=== PATIENT | male | born 1995 | race Caucasian/White ===

== ENCOUNTER 2024-09-15 13:01 | Emergency (ER) | payer MEDICAID ==
[~2024-09-15] VITALS: Ht 182.9 cm; Wt 125.0 kg
[2024-09-15 13:14] VITALS: BP 131/73; PULSE 84; RESP 18; TEMP 97.3; O2SAT 99
[2024-09-15] MEDS ORDERED: PALI234D IM (15:56)
[2024-09-15] MEDS ORDERED: HALO10TA21 PO (15:56)
[2024-09-15] MEDS ORDERED: VALP250S27 PO (15:56)
== END 2024-09-15 16:30 | disposition left against medical advice (07) ==
LOC: EMS 13:01
DX: R22.1 Localized swelling, mass and lump, neck (principal); Z53.21 Procedure and treatment not carried out due to patient leaving prior to being seen by health care provider

== ENCOUNTER 2024-09-21 11:59 | Emergency (ER) | payer MEDICAID ==
[~2024-09-21] VITALS: Ht 180.3 cm; Wt 100.0 kg
[~2024-09-21 11:59] MED LIST: HALO10TA21 PO; PALI234D IM; VALP250S27 PO
[2024-09-21 12:10] VITALS: TEMP 97.8
[2024-09-21 15:00] VITALS: BP 115/74; PULSE 85; RESP 17; O2SAT 99
[2024-09-21] MEDS ORDERED: CEPH-558 PO (15:00)
[2024-09-21] MEDS ORDERED: SULF-261 PO (15:00)
[2024-09-21] MEDS: CEPHALEXIN MONOHYDRATE 500 MG CAPSULE PO ONE (15:10)
[2024-09-21] MEDS: SULFAMETHOX/TRIMETH DS 800-160 MG/TABLET PO ONE (15:10)
== END 2024-09-21 15:42 | disposition home or self-care (01) ==
LOC: EMS 11:59
DX: L03.221 Cellulitis of neck (principal); F20.9 Schizophrenia, unspecified; Z79.899 Other long term (current) drug therapy
CPT/HCPCS: 99284; Z7502; Z7610

== ENCOUNTER 2024-10-18 05:57 | Emergency (ER) | payer MEDICAID ==
[~2024-10-18] VITALS: Ht 182.9 cm; Wt 122.7 kg
[~2024-10-18 05:57] MED LIST changes: +CEPH-558 PO; +SULF-261 PO
[2024-10-18] MEDS ORDERED: BUPR1FIL3 SL (06:09)
[2024-10-18] MEDS ORDERED: LEVO25TA9 PO (06:09)
[2024-10-18] MEDS ORDERED: BUPR1FIL7 SL (06:09)
[2024-10-18] MEDS ORDERED: BUPR1TAB45 SL (09:11)
[2024-10-18] MEDS ORDERED: BUPR1TAB46 SL (09:11)
[2024-10-18 09:26] VITALS: BP 109/66; PULSE 72; RESP 18; TEMP 98.6; O2SAT 98
== END 2024-10-18 09:28 | disposition home or self-care (01) ==
LOC: EMS 06:40
DX: F11.23 Opioid dependence with withdrawal (principal); F20.9 Schizophrenia, unspecified; F17.210 Nicotine dependence, cigarettes, uncomplicated; Z98.890 Other specified postprocedural states; Z76.0 Encounter for issue of repeat prescription; Z79.890 Hormone replacement therapy; Z79.899 Other long term (current) drug therapy
CPT/HCPCS: 99281; Z7502